=== PATIENT | female | born 1930 | race Caucasian/White ===

== ENCOUNTER 2016-11-24 13:26 | Emergency (ER) | payer MEDICARE, OTHER | END 2016-11-24 13:34 | disposition left against medical advice (07) | LOC: UCEAST 13:26 | DX: S69.90XA Unspecified injury of unspecified wrist, hand and finger(s), initial encounter (principal); X58.XXXA Exposure to other specified factors, initial encounter; Y93.9 Activity, unspecified; Y92.9 Unspecified place or not applicable; Z53.21 Procedure and treatment not carried out due to patient leaving prior to being seen by health care provider ==

== ENCOUNTER 2017-11-15 11:03 | Emergency (ER) | payer MEDICARE, OTHER ==
[2017-11-15 11:25] VITALS: BP 151/69
--- NOTE | 2017-11-15 12:07 | UC ---
Minor Trauma HPI - HPI Summary HPI Summary: This patient is a 87 year old F [place] [facility] [place] a chief complaint of trauma from tripping and falling since yesterday. The patient rates the pain 6/ 10 in severity. Pt states when fell landed on right side and struck her right cheek. No LOC. No blood HEENT. No cp, sob, abd pain. No n/v/d. No paresthesia, weakness. pt with pain right shoulder and right ribs. No open wounds, no bleeding. No hip or leg pain. Pt did not take anything for pain. Pt without other complaints. Pt is RHD. . She lives by herself, got up herself after tripping, and drove herself here today. Pt's medications reviewed this visit pt take 81mg ASA - History of Current Complaint Chief Complaint: UCTrauma Stated Complaint: FELL SHOULDER/RIB PAIN Time Seen by Provider: 11/15/17 11:50 Hx Obtained From: Patient Severity Initially: Moderate Severity Currently: Moderate Pain Intensity: 6 Pain Scale Used: 0-10 Numeric Associated Signs And Symptoms: Positive: Other: - Slight headache in the back of her head, R rib pain, and R shoulder pain. Denies neck pain, back pain, LOC, blood out of ears, blood out of mouth, blood out of eyes, SOB, and new/ different abdominal pain.. Negative: Loss Of Consciousness - Allergies/Home Medications Allergies/Adverse Reactions: Allergies Allergy/AdvReac Type Severity Reaction Status Date / Time codeine Allergy Unknown Verified 11/15/17 12:32 Reaction Details gabapentin Allergy Unknown Verified 11/15/17 12:32 Reaction Details hydrocodone Allergy Unknown Verified 11/15/17 12:32 Reaction Details Penicillins Allergy Rash Verified 11/15/17 12:31 Sulfa (Sulfonamide Allergy Unknown Verified 11/15/17 12:31 Antibiotics) Reaction Details tramadol Allergy Unknown Verified 11/15/17 12:31 Reaction Details shingles med Allergy Diarrhea Uncoded 11/15/17 12:31 Shingles Medication Allergy Diarrhea Uncoded 11/15/17 11:15 PMH/Surg Hx/FS Hx/Imm Hx Previously Healthy: Yes - shingles - Surgical History Surgical History: Yes Surgery Procedure, Year, and Place: Cardiac stents placed 2009. Breast reduction 1999. - Family History Known Family History: Positive: Cardiac Disease - Mother and father both from [place] - Social History Occupation: Retired Lives: Alone Alcohol Use: None Substance Use Type: None Smoking Status (MU): Never Smoked Tobacco Review of Systems Skin: Bruising ENT: Other - Denies neck pain, blood out of ears, and blood out of mouth. Gastrointestinal: Abdominal Pain - Denies new/different abd pain Musculoskeletal: Other: - R rib pain and R shoulder pain. Denies back pain. Neurological: Headache - Slight ALBA in back of her head, Other - Denies LOC. All Other Systems Reviewed And Are Negative: Yes Physical Exam - Summary Physical Exam Summary: Vital Signs Reviewed: Yes A+Ox3, no distress Eyes: Conjunctiva Clear, FERNANDO. EOM intact and full Pt with mild discomfort right zygomatic arch.mild edema, no ecchymosis no crepitus,no abraison ENT: Hearing grossly normal TM x 2 clear, mmoist, uvula midline, no exudate, no erythema no hemptymp, no septal hematoma Neck: Positive: Supple Respiratory: Positive: No respiratory distress, No accessory muscle use + CTA throughout no w/r mild ttp left anterior chest wall. no ecchymosis, no edema, no abraison, no crepitus Cardiovascular: RRR nl s1, s2 no m/r CBT <2 sec abd soft + BS nt/nd no guarding, no distension n oecchymosis Musculoskeletal Exam: NICHOLAS x 4 without difficulty Strength Intact, ROM Intact + ecchymosis left lateral prox shoulder Full AROM shoulder with mild discomfort Neurological: Positive: Alert, + sensation throughout Psychological: Positive: Normal Response To Family Skin: Positive: no rash, no ecchymosis Triage Information Reviewed: Yes Vital Signs: Initial Vital Signs Temp 97.6 F 11/15/17 11:18 Pulse 64 11/15/17 11:18 Resp 16 11/15/17 11:18 BP 151/69 11/15/17 11:18 Pulse Ox 99 11/15/17 11:18 Vital Signs Reviewed: Yes Diagnostics - Radiology Shoulder X-Ray Radiology Interpretation Completed By: Radiologist - 13:18. MINOR AGE-RELATED OSTEOARTHRITIS. NO ACUTE FINDINGS. Physician has reviewed this imaging report. Ribs w/ Chest X-Ray Radiology Interpretation Completed By: Radiologist - 13:17. NO DISPLACED RIB FRACTURE OR PNEUMOTHORAX. Physician has reviewed this imaging report. Re-Evaluation - Re-Evaluation First Eval Comment: reviewed images with pt. recommended apap, ice, rest , stretch. pcp f /u. pt continues to decline analgesia here Minor Trauma Course/Dx - Course Course Of Treatment: Pt with mechanical fall yesterday. no anticoagulants. pt with mild discomfort right zygomatic arch. mild discomfort anterior right chest wall and right shoulder. pt with ecchymosis right lateral shoulder. no crepitus. pt declined analgesia. ice. imaging - Differential Dx/Diagnosis Provider Diagnoses: fall. contusion Discharge - Sign-Out/Discharge Documenting (check all that apply): Patient Departure All imaging exams completed and their final reports reviewed: Yes - Discharge Plan Condition: Stable Disposition: HOME Patient Education Materials: Contusion in Adults (ED) Referrals: Shan Gentile MD [Primary Care Provider] - Additional Instructions: - Okay to apply ice (Wrapped in a towel) 20 minutes at time. do not put directly on your skin - okay to take Tylenol every 6-8 hours as needed for pain - take deep, slow breaths several times and hour. Okay to hold a pillow or blanket against your ribs to provide support while taking deep breaths - contact your doctor to schedule a follow-up appointment. Contact your doctor or return with questions or concerns - Billing Disposition and Condition Condition: STABLE Disposition: Home - Attestation Statements Document Initiated by Jillianibe: Yes Documenting Scribe: Neil Sims Provider For Whom Scribe is Documenting (Include Credential): Laya Merrill MD Scribe Attestation: Neil Brown, scribed for Laya Merrill MD on 11/16/17 at 0757. Scribe Documentation Reviewed: Yes Provider Attestation: The documentation as recorded by the Neil menjivar accurately reflects the service I personally performed and the decisions made by me, Laya Merrill MD
--- NOTE | 2017-11-15 13:20 | RAD ---
HISTORY: fall, pain COMPARISONS: None VIEWS: 7 , Frontal view of the chest with frontal and oblique views of the right hemithorax. FINDINGS: There is no displaced rib fracture or pneumothorax. The visualized lungs are clear. There is a scoliotic curvature of the spine. IMPRESSION: NO DISPLACED RIB FRACTURE OR PNEUMOTHORAX.
--- NOTE | 2017-11-15 13:21 | RAD ---
INDICATION: Right shoulder pain COMPARISON: None TECHNIQUE: AP, lateral, and oblique views were obtained. FINDINGS: There is no acute bony change. There is mild AC joint osteoarthritis. There is minimal spurring about the inferior glenoid. Soft tissues are intact. IMPRESSION: MINOR AGE-RELATED OSTEOARTHRITIS. NO ACUTE FINDINGS.
== END 2017-11-15 13:30 | disposition home or self-care (01) ==
LOC: UCEAST 11:03
DX: S40.011A Contusion of right shoulder, initial encounter (principal); R07.81 Pleurodynia; W18.30XA Fall on same level, unspecified, initial encounter; Y92.9 Unspecified place or not applicable; Z88.6 Allergy status to analgesic agent; Z88.5 Allergy status to narcotic agent; Z88.0 Allergy status to penicillin; Z88.2 Allergy status to sulfonamides; Z88.7 Allergy status to serum and vaccine; Z88.8 Allergy status to other drugs, medicaments and biological substances
CPT/HCPCS: 99212; G0463

== ENCOUNTER 2020-07-30 17:51 | Inpatient (IN) ==
[2020-07-30] MEDS ORDERED: NS 0.9% 1000 ml BAG 1,000 ML IV ONE (19:04)
[2020-07-30 20:05] LABS: ABS Basophils 0.1 10^3/ul (0-0.2); ABS Lymphocytes 0.7 10^3/ul (1.0-4.8); ABS Monocytes 1.4 10^3/ul (0-0.8); ABS Neutrophils 19.2 10^3/ul (1.5-7.7); Hematocrit 32 % (35-47); Hemoglobin 10.7 g/dL (12.0-16.0); Lymphocyte % 3.3 %; Mean Corpuscular HGB Conc 34 g/dL (31-36); Mean Corpuscular Hemoglobin 31 pg (27-31); Mean Corpuscular Volume 91 fL (80-97); Platelet Count 180 10^3/uL (150-450); Red Blood Count 3.51 10^6 /uL (3.70-4.87); Red Cell Distribution Width 13 % (10-15); White Blood Count 21.4 10^3/uL (3.5-10.8)
[2020-07-30 20:10] LABS: Urine Appearance Clear; Urine Bilirubin Negative (Negative); Urine Blood Negative (Negative); Urine Color Yellow; Urine Glucose Negative (Negative); Urine Ketones Negative (Negative); Urine Nitrite Negative (Negative); Urine Protein 1+(30 mg/dL) (Negative); Urine Specific Gravity 1.008 (1.002-1.030); Urine Urobilinogen Negative (Negative)
[2020-07-30 20:12] LABS: INR 1.21 (0.82-1.09)
[2020-07-30 20:16] LABS: LDH 185 U/L (140-271)
[2020-07-30 20:19] LABS: ALT 13 U/L (7-52); AST 17 U/L (13-39); Albumin 3.4 g/dL (3.2-5.2); Albumin/Globulin Ratio 1.3 (1-3); Alkaline Phosphatase 68 U/L (34-104); Anion Gap 5 mmol/L (2-11); Blood Urea Nitrogen 13 mg/dL (6-24); C Reactive Protein 121.91 mg/L (<8.01); CO2 Carbon Dioxide 26 mmol/L (22-32); Calcium 8.1 mg/dL (8.6-10.3); Chloride 99 mmol/L (101-111); EGFR African American 79.4 (>60); EGFR Non-African American 65.6 (>60); Globulin 2.6 g/dL (2-4); Glucose 146 mg/dL (70-100); Sodium 130 mmol/L (135-145)
[2020-07-30 20:26] LABS: Influenza A Molecular Negative (Negative); Influenza B Molecular Negative (Negative); Urine Bacteria 1+ (Absent); Urine Red Blood Cell 1+(3-5/hpf) (Absent); Urine Squamous Epithelial Cell Present (Absent); Urine Transitional Epithelial Present (Absent); Urine White Blood Cell 2+(11-20/hpf) (Absent)
[2020-07-30 20:28] LABS: Troponin I 0.03 ng/mL (<0.03)
[2020-07-30 20:37] LABS: Ferritin 118.9 ng/mL (11-307)
[2020-07-30] MEDS ORDERED: Cefepime 1 GM in Dextrose 1 GM/50 ML BAG IV ONE (20:46)
[2020-07-30] MEDS ORDERED: Al Hydrox/Mg Hydrox/Simet LIQ 30 ML UDC PO PRN (21:29)
[2020-07-30] MEDS ORDERED: Ondansetron 4 mg VIAL 2 MG/ML 2 ml VIAL IV PRN (21:29)
[2020-07-30] MEDS ORDERED: Magnesium Hydroxide LIQ 30 ML UDC PO PRN (21:29)
[2020-07-30] MEDS: NS 0.9% 1000 ml BAG 1,000 ML IV SCH (23:26)
[2020-07-31 02:22] LABS: ABS Basophils 0.2 10^3/ul (0-0.2); ABS Lymphocytes 1.2 10^3/ul (1.0-4.8); ABS Monocytes 1.5 10^3/ul (0-0.8); ABS Neutrophils 14.7 10^3/ul (1.5-7.7); Hematocrit 30 % (35-47); Hemoglobin 10.2 g/dL (12.0-16.0); Lymphocyte % 6.6 %; Mean Corpuscular HGB Conc 34 g/dL (31-36); Mean Corpuscular Hemoglobin 31 pg (27-31); Mean Corpuscular Volume 91 fL (80-97); Mean Platelet Volume 8.8 fL (7.4-10.4); Platelet Count 160 10^3/uL (150-450); Red Blood Count 3.29 10^6 /uL (3.70-4.87); Red Cell Distribution Width 13 % (10-15); White Blood Count 17.5 10^3/uL (3.5-10.8)
[2020-07-31 02:34] LABS: Albumin/Globulin Ratio 1.3 (1-3); Calcium 7.8 mg/dL (8.6-10.3); EGFR African American 96.9 (>60); EGFR Non-African American 80.1 (>60); Globulin 2.4 g/dL (2-4); Potassium 3.7 mmol/L (3.5-5.0); Total Bilirubin 1.2 mg/dL (0.2-1.0); Total Protein 5.4 g/dL (6.4-8.9)
[2020-07-31 02:36] LABS: Troponin I 0.01 ng/mL (<0.03)
[2020-07-31] MEDS: Cefepime 1 GM in Dextrose 1 GM/50 ML BAG IV SCH ×2 (08:46→21:54)
[2020-07-31] MEDS: NS 0.9% 1000 ml BAG 1,000 ML IV SCH (11:23)
[2020-07-31] MEDS: Enoxaparin 40 MG/0.4 ML SYR SUBCUT SCH (15:23)
[2020-08-01 05:06] LABS: ABS Eosinophils 0.1 10^3/ul (0-0.6); ABS Lymphocytes 0.9 10^3/ul (1.0-4.8); ABS Monocytes 1.1 10^3/ul (0-0.8); ABS Neutrophils 8.9 10^3/ul (1.5-7.7); Hematocrit 29 % (35-47); Hemoglobin 9.7 g/dL (12.0-16.0); Lymphocyte % 8.5 %; Mean Corpuscular HGB Conc 34 g/dL (31-36); Mean Corpuscular Hemoglobin 31 pg (27-31); Mean Corpuscular Volume 93 fL (80-97); Mean Platelet Volume 8.8 fL (7.4-10.4); Platelet Count 153 10^3/uL (150-450); Red Blood Count 3.07 10^6 /uL (3.70-4.87); Red Cell Distribution Width 14 % (10-15); White Blood Count 11.1 10^3/uL (3.5-10.8)
[2020-08-01 05:21] LABS: C Reactive Protein 98.43 mg/L (<8.01); Calcium 7.7 mg/dL (8.6-10.3); EGFR African American 105.7 (>60); EGFR Non-African American 87.4 (>60); Potassium 3.8 mmol/L (3.5-5.0)
[2020-08-01] MEDS: Cefepime 1 GM in Dextrose 1 GM/50 ML BAG IV SCH (11:22)
[2020-08-01 18:10] VITALS: BP 147/64
[2020-08-01] MEDS: Enoxaparin 40 MG/0.4 ML SYR SUBCUT SCH (18:31)
== END 2020-08-01 18:00 | disposition home or self-care (01) | DRG 872 ==
LOC: MED 17:51 → ED 17:51 → MED 22:49
PROVIDERS: ADMIT Hospitalist; ATTEND Internal Medicine

== ENCOUNTER 2020-11-16 12:07 | Inpatient (IN) ==
[2020-11-16 13:18] LABS: ABS Lymphocytes 1.4 10^3/ul (1.0-4.8); ABS Monocytes 0.7 10^3/ul (0-0.8); ABS Neutrophils 4.9 10^3/ul (1.5-7.7); Eosinophil % 0.5 %; Hematocrit 34 % (35-47); Hemoglobin 11.5 g/dL (12.0-16.0); Lymphocyte % 19.6 %; Mean Corpuscular HGB Conc 34 g/dL (31-36); Mean Corpuscular Hemoglobin 31 pg (27-31); Mean Corpuscular Volume 92 fL (80-97); Mean Platelet Volume 8.5 fL (7.4-10.4); Platelet Count 192 10^3/uL (150-450); Red Blood Count 3.69 10^6 /uL (3.70-4.87); Red Cell Distribution Width 14 % (10-15)
[2020-11-16 13:19] LABS: Urine Appearance Clear; Urine Bilirubin Negative (Negative); Urine Blood Negative (Negative); Urine Color Straw; Urine Glucose Negative (Negative); Urine Ketones Negative (Negative); Urine Nitrite Negative (Negative); Urine Protein Negative (Negative); Urine Specific Gravity 1.004 (1.002-1.030); Urine Urobilinogen Negative (Negative)
[2020-11-16 13:22] LABS: Urine Bacteria Absent (Absent); Urine Red Blood Cell Trace(0-2/hpf) (Absent); Urine Squamous Epithelial Cell Present (Absent); Urine Transitional Epithelial Present (Absent); Urine White Blood Cell Trace(0-5/hpf) (Absent)
[2020-11-16 13:31] LABS: Activated Partial Thrombo Time 28.8 seconds (26.0-38.0)
[2020-11-16 13:38] LABS: Troponin I 0.01 ng/mL (<0.03)
[2020-11-16 13:39] LABS: ALT 14 U/L (7-52); AST 28 U/L (13-39); Albumin/Globulin Ratio 1.7 (1-3); Alkaline Phosphatase 60 U/L (35-149); Anion Gap 6 mmol/L (2-11); Blood Urea Nitrogen 10 mg/dL (6-24); C Reactive Protein < 1.00 mg/L (<8.01); CO2 Carbon Dioxide 27 mmol/L (22-32); Chloride 100 mmol/L (101-111); EGFR African American 81.7 (>60); EGFR Non-African American 67.5 (>60); Globulin 2.4 g/dL (2-4); Glucose 94 mg/dL (70-100); Potassium 3.7 mmol/L (3.5-5.0); Sodium 133 mmol/L (135-145); Total Protein 6.4 g/dL (6.4-8.9)
[2020-11-16] MEDS: Enoxaparin 40 MG/0.4 ML SYR SUBCUT SCH (19:39)
[2020-11-16 19:59] LABS: Vitamin B12 > 1450 pg/mL (180-914)
[2020-11-17] MEDS: Cholecalciferol (VIT D3) 1,000 unit TAB PO SCH (09:01)
[2020-11-17] MEDS: Aspirin EC 81 mg TAB.EC (enteric coated) PO SCH (09:01)
[2020-11-17 09:58] LABS: ABS Basophils 0.1 10^3/ul (0-0.2); ABS Lymphocytes 1.1 10^3/ul (1.0-4.8); ABS Monocytes 0.5 10^3/ul (0-0.8); ABS Neutrophils 4.1 10^3/ul (1.5-7.7); Eosinophil % 0.8 %; Hematocrit 33 % (35-47); Hemoglobin 11.5 g/dL (12.0-16.0); Lymphocyte % 19.3 %; Mean Corpuscular HGB Conc 34 g/dL (31-36); Mean Corpuscular Hemoglobin 32 pg (27-31); Mean Corpuscular Volume 92 fL (80-97); Mean Platelet Volume 8.5 fL (7.4-10.4); Nucleated Red Blood Cells % 0.1; Platelet Count 176 10^3/uL (150-450); Red Blood Count 3.63 10^6 /uL (3.70-4.87); Red Cell Distribution Width 14 % (10-15); White Blood Count 5.8 10^3/uL (3.5-10.8)
[2020-11-17 10:25] LABS: Calcium 8.7 mg/dL (8.6-10.3); EGFR African American 80.6 (>60); EGFR Non-African American 66.6 (>60); Potassium 3.5 mmol/L (3.5-5.0)
[2020-11-17] MEDS: Enoxaparin 40 MG/0.4 ML SYR SUBCUT SCH (17:11)
[2020-11-18] MEDS ORDERED: Lorazepam PYXIS KEY PRN ×2 (00:04→02:16)
[2020-11-18] MEDS ORDERED: LORazepam 2 mg VIAL 1 ml IV PUSH ONE ×2 (00:04→02:16)
[2020-11-18] MEDS ORDERED: LORazepam 2 mg VIAL 1 ml ONE (00:08)
[2020-11-18] MEDS ORDERED: Lorazepam PYXIS KEY ONE (00:08)
[2020-11-18 04:51] LABS: ABS Eosinophils 0.1 10^3/ul (0-0.6); ABS Lymphocytes 1.1 10^3/ul (1.0-4.8); ABS Monocytes 0.6 10^3/ul (0-0.8); Eosinophil % 0.9 %; Hematocrit 32 % (35-47); Hemoglobin 11.1 g/dL (12.0-16.0); Lymphocyte % 19.5 %; Mean Corpuscular HGB Conc 34 g/dL (31-36); Mean Corpuscular Hemoglobin 31 pg (27-31); Mean Corpuscular Volume 91 fL (80-97); Mean Platelet Volume 8.5 fL (7.4-10.4); Platelet Count 177 10^3/uL (150-450); Red Blood Count 3.55 10^6 /uL (3.70-4.87); Red Cell Distribution Width 14 % (10-15); White Blood Count 5.8 10^3/uL (3.5-10.8)
[2020-11-18 05:07] LABS: Calcium 8.2 mg/dL (8.6-10.3); EGFR African American 78.3 (>60); EGFR Non-African American 64.7 (>60); Magnesium 1.9 mg/dL (1.9-2.7); Potassium 3.5 mmol/L (3.5-5.0)
[2020-11-18 05:22] LABS: TSH Ultra Thyroid Stim Horm 4.14 mcIU/mL (0.34-5.60)
[2020-11-18 05:33] LABS: Folate 12.57 ng/mL (5.90-24.80)
[2020-11-18] MEDS ORDERED: Potassium Chlor 20 meq TAB.ER PO ONE (07:03)
[2020-11-18] MEDS: Aspirin EC 81 mg TAB.EC (enteric coated) PO SCH (09:43)
[2020-11-18] MEDS: Cholecalciferol (VIT D3) 1,000 unit TAB PO SCH (09:44)
[2020-11-18] MEDS: Enoxaparin 40 MG/0.4 ML SYR SUBCUT SCH (18:09)
[2020-11-19 08:39] LABS: ABS Eosinophils 0.1 10^3/ul (0-0.6); ABS Lymphocytes 1.3 10^3/ul (1.0-4.8); ABS Monocytes 0.7 10^3/ul (0-0.8); ABS Neutrophils 5.7 10^3/ul (1.5-7.7); Hematocrit 35 % (35-47); Hemoglobin 12.2 g/dL (12.0-16.0); Lymphocyte % 16.2 %; Mean Corpuscular HGB Conc 35 g/dL (31-36); Mean Corpuscular Hemoglobin 31 pg (27-31); Mean Corpuscular Volume 91 fL (80-97); Mean Platelet Volume 8.9 fL (7.4-10.4); Platelet Count 180 10^3/uL (150-450); Red Blood Count 3.89 10^6 /uL (3.70-4.87); Red Cell Distribution Width 14 % (10-15); White Blood Count 7.7 10^3/uL (3.5-10.8)
[2020-11-19 08:56] LABS: Calcium 8.4 mg/dL (8.6-10.3); EGFR African American 74.2 (>60); EGFR Non-African American 61.3 (>60); Potassium 3.6 mmol/L (3.5-5.0)
[2020-11-19] MEDS: Aspirin EC 81 mg TAB.EC (enteric coated) PO SCH (09:28)
[2020-11-19] MEDS: Cholecalciferol (VIT D3) 1,000 unit TAB PO SCH (09:32)
[2020-11-19] MEDS: Enoxaparin 40 MG/0.4 ML SYR SUBCUT SCH (16:49)
[2020-11-20] MEDS: Aspirin EC 81 mg TAB.EC (enteric coated) PO SCH (08:43)
[2020-11-20] MEDS: Cholecalciferol (VIT D3) 1,000 unit TAB PO SCH (08:44)
[2020-11-20] MEDS: Lidocaine PATCH 5% PATCH TRANSDERM SCH (15:45)
[2020-11-20] MEDS: Enoxaparin 40 MG/0.4 ML SYR SUBCUT SCH (18:37)
[2020-11-20] MEDS: Lidocaine Patch REMOVE PATCH PATCH OFF SCH (20:17)
[2020-11-21] MEDS: Lidocaine PATCH 5% PATCH TRANSDERM SCH (08:27)
[2020-11-21] MEDS: Cholecalciferol (VIT D3) 1,000 unit TAB PO SCH (08:28)
[2020-11-21] MEDS: Aspirin EC 81 mg TAB.EC (enteric coated) PO SCH (08:29)
[2020-11-21 09:01] LABS: Calcium 8.3 mg/dL (8.6-10.3); EGFR African American 103.8 (>60); EGFR Non-African American 85.8 (>60)
[2020-11-21] MEDS: Enoxaparin 40 MG/0.4 ML SYR SUBCUT SCH (17:12)
[2020-11-21] MEDS: Lidocaine Patch REMOVE PATCH PATCH OFF SCH (19:29)
[2020-11-22 07:47] LABS: ABS Eosinophils 0.1 10^3/ul (0-0.6); ABS Monocytes 0.6 10^3/ul (0-0.8); ABS Neutrophils 5.1 10^3/ul (1.5-7.7); Eosinophil % 1.5 %; Hematocrit 34 % (35-47); Hemoglobin 11.9 g/dL (12.0-16.0); Lymphocyte % 14.1 %; Mean Corpuscular HGB Conc 35 g/dL (31-36); Mean Corpuscular Hemoglobin 32 pg (27-31); Mean Corpuscular Volume 90 fL (80-97); Mean Platelet Volume 9.1 fL (7.4-10.4); Platelet Count 174 10^3/uL (150-450); Red Blood Count 3.78 10^6 /uL (3.70-4.87); Red Cell Distribution Width 14 % (10-15); White Blood Count 6.9 10^3/uL (3.5-10.8)
[2020-11-22 07:56] LABS: Calcium 8.7 mg/dL (8.6-10.3); EGFR African American 107.7 (>60)
[2020-11-22] MEDS: Aspirin EC 81 mg TAB.EC (enteric coated) PO SCH (09:38)
[2020-11-22] MEDS: Lidocaine PATCH 5% PATCH TRANSDERM SCH (09:38)
[2020-11-22] MEDS: Cholecalciferol (VIT D3) 1,000 unit TAB PO SCH (09:38)
[2020-11-22] MEDS: Enoxaparin 40 MG/0.4 ML SYR SUBCUT SCH (17:38)
[2020-11-22] MEDS: Lidocaine Patch REMOVE PATCH PATCH OFF SCH (19:31)
[2020-11-22] MEDS ORDERED: Acetaminophen IV 1 GM/100ML 100 ML IV ONE (20:47)
[2020-11-23] MEDS: Lidocaine PATCH 5% PATCH TRANSDERM SCH (08:42)
[2020-11-23] MEDS: Cholecalciferol (VIT D3) 1,000 unit TAB PO SCH (08:48)
[2020-11-23] MEDS: Aspirin EC 81 mg TAB.EC (enteric coated) PO SCH (08:49)
[2020-11-23 11:59] VITALS: BP 122/58
== END 2020-11-23 14:50 | disposition home health service (06) | DRG 57 ==
LOC: MED 12:07 → ED 12:07 → OBSVTOIN 19:10 → SUATTDRO 19:10 → MED 20:15
PROVIDERS: ADMIT Hospitalist; ATTEND Internal Medicine